=== PATIENT | female | born 1935 | race Caucasian/White ===

== ENCOUNTER → 2016-07-17 | Outpatient (CLI) | payer MEDICARE, BC ==
[~2016-07-17] MED LIST: AHCC PO; ALPHA LIPOIC AC50 MG PO; ASPIRIN EC81 MG PO; B COMPLEX1 EACH PO; BETAPACE (GENER80 MG PO; BIOTIN300 MCG PO; BORON PO; CALCIUM CITRAT1 EAC7 PO; CALCIUM500 MG PO; CHOLEST CARE500 MG PO; CHROMIUM PO; CINNAMON500 MG PO; CLA 1,000 MG1000 MG PO; CLA PO; COMBIGAN 0.25 ML/BOT OPHTH; COMBIGAN EYE DRO5 ML OPHTH; COMPAZINE 10MG10 MG PO; COPPER2 MG PO; COQ-10100 MG PO; CRANBERRY CONC1 EACH PO; DECADRON4 MG PO; DELSYM30 MG/5 ML PO; EMLA TOP; FERGON325 M1 PO; FISH OIL 1,0001 EACH PO; FOLIC ACID0.8 MG PO; GINKGO BILOBA120 MG PO; GLUCOPHAGE XR750 M1 PO; GRAPE SEED EXTR50 MG PO; GREEN TEA EXTR250 MG PO; LEVAQUIN750 MG PO; LUMIGAN 0.01%2.5 ML OPHTH; LUTEIN20 MG PO; LYCOPENE10 MG PO; MAG-OX-400(241400 MG PO; MUCINEX1200 MG PO; NIACIN50 MG PO; NORCO 5-325 MG1 TAB PO; NORVASC5 MG PO; PERCOCET 5-3251 EACH PO; PLANT STEROLS PO; POMEGRANATE250 MG PO; PRILOSEC20 MG PO; PRINIVIL (ZESTR20 MG PO; PROAIR RESPICL90 MCG INH; PROBIOTIC1 EAC1 PO; RESVERATROL250 MG PO; ROXICODONE 5MG (5 MG PO; SELENIUM200 MC1 PO; STIOLTO RESPIMAT4 GM INH; TONALIN CLA 11000 MG PO; TURMERIC500 MG PO; VITAMIN A10000 UNI1 PO; VITAMIN A8000 UNIT PO; VITAMIN B-12500 MCG PO; VITAMIN C1000 MG PO; VITAMIN D35000 UNI1 PO; VITAMIN E COMPLETE PO; VITAMIN K240 MCG PO; WOMEN'S BIOMUL1 EACH PO; XOPENEX1.25 MG/3 INH; ZINC50 M1 PO; [UNRECOGNIZED DRUG - OTHER] PO; [UNRECOGNIZED DRUG - OTHER] PO
== END | disposition disaster alternative care site (69) ==
LOC: GRAD 10:39
DX: C34.32 Malignant neoplasm of lower lobe, left bronchus or lung (principal); R91.1 Solitary pulmonary nodule
CPT/HCPCS: Q9967

== ENCOUNTER → 2016-10-29 | Outpatient (CLI) | payer MEDICARE, BC ==
[~2016-10-29] MED LIST changes: +LACTINEX (FLORA1 TAB PO; +LEVAQUIN 750 M750 MG PO; +LEVEMIR FL100 UNIT/1 SUB-Q; +NOVOLOG FL100 UNIT/1 SUB-Q
== END | disposition disaster alternative care site (69) ==
LOC: GRAD 10-28 14:00
DX: J32.9 Chronic sinusitis, unspecified (principal); C34.32 Malignant neoplasm of lower lobe, left bronchus or lung; R93.0 Abnormal findings on diagnostic imaging of skull and head, not elsewhere classified

== ENCOUNTER → 2016-11-10 | Day surgery (SDC) | payer MEDICARE, BC ==
[~2016-11-10] VITALS: Ht 160 cm; Wt 66.0 kg
--- NOTE | ~2016-11-10 | OR ---
PATIENT'S NAME: WILI HOWARD [facility] AGE: 81 Y [address] ROOM: [place] [address] LOCATION: [facility] ADMIT DATE: 11/10/2016 OR/Procedure Report DISCHARGE DATE: FAMILY PHYSICIAN: Nena Feldman MD ATTENDING PHYSICIAN: Lopez Delacruz V SURGEON: Lopez Delacruz MD MENTAL HEALTH CASE MANAGER: Kings Kelly MD-Student. 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 PROCEDURE PERFORMED: 1. Endoscopic sinus surgery with right sphenoidotomy. 2. Biopsy of sphenoid mass. 3. Stealth CT navigation. ANESTHESIA: General endotracheal anesthesia. ESTIMATED BLOOD LOSS: 25 mL. SPECIMEN REMOVED: Right sphenoid mass. FINDINGS: No discrete-appearing mass in the sphenoid sinus, however, the bone surrounding the sphenoid ostium was moth-eaten. This was biopsied and sent for frozen section. This did come back, likely malignancy, however, a definitive diagnosis was unable to be given on the frozen section. INDICATION: Wili Howard is a 81-year-old female with metastatic carcinoma. She had a CT scan showing erosion of the clivus, suspicious for metastatic malignancy. It was recommend that she undergo an endoscopic biopsy. PROCEDURE DETAILS: The patient was seen in the preoperative holding area. Informed written consent was obtained from the patient for functional endoscopic sinus surgery and biopsy of the sphenoid mass. After full knowledge of the risks, benefits, and alternatives, the patient wished to proceed. The patient was taken to the operating room and placed on the operating room table. General endotracheal anesthesia was induced without any difficulty. A time-out was performed identifying the patient as well as the procedure to be performed. We began by rotating the bed to 180 degrees. We set up our CT navigation and registered this and confirmed that it was accurate by measuring against bony landmarks on the face. The patient was PATIENT'S NAME: WILI HOWARD [facility] AGE: 81 Y [address] ROOM: [place] [address] LOCATION: [facility] ADMIT DATE: 11/10/2016 OR/Procedure Report DISCHARGE DATE: FAMILY PHYSICIAN: Nena Feldman MD ATTENDING PHYSICIAN: Lopez Delacruz V then prepped and draped in a normal sterile fashion. We used a 0 degree endoscope for this procedure. We entered the patient's right nasal passage. We lateralized the inferior turbinate and the middle turbinate. The patient had significant blood clots within nasal cavity, which were suctioned clear. We came up onto the face of the sphenoid sinus from a transnasal and medial approach, and we confirmed that we were on the sphenoid sinus using our CT navigation. We removed the inferior 1/3rd of the superior turbinate using a combination of forceps and microdebrider. We identified the sphenoid os and widened this using a combination of blunt dissection and forceps. We took multiple biopsies around the sphenoid ostium. We did enter through the inner sinus septum into the left sphenoid sinus as well. There was no discrete mass, however, the bone of the sinus was moth-eaten when we were taking biopsies of that. After we confirmed we had adequate tissue for diagnosis and for pathology, we then copiously irrigated the nose and sinuses with saline. We placed FloSeal hemostatic agent into the sphenoid sinus and then NasoPore absorbable nasal packing into the sphenoid sinus as well. This marked at the conclusion of procedure. All sponge and needle counts were correct x2. The patient was passed back to Anesthesia where she was extubated without difficulty and transported to PACU in stable condition. KINGS KELLY MD-STUDENT FOR MD YING HARTLEY/samanthal /[id number] d: 11/10/16 1851 t: 12/01/16 0957, OPERATIVE SUMMARY
[2016-11-10 08:13] LABS: INR - (THERAPEUTIC) 1.03 (0.92-1.07); PROTIME 10.8 SECONDS (9.8-11.4)
--- NOTE | 2016-11-10 15:12 | NUR ---
d: Patient desats 80-89 %. I: Cough and deep breaths. R: Sats increase to 90-91 % I: Called for Albuterol tx R: 1511. Tx given. sats 90%
--- NOTE | 2016-11-10 16:20 | NUR ---
I: Called Carin MONREAL regarding low sats. R: Will come and evaluate pateint. I: Ordered IS and c&DB Q 1 hour
== END ==
LOC: GPOC 11-07 17:00 → GRAD 06:51 → GSDC 07:00
PROVIDERS: Otolaryngology
PROC: 09CW4ZZ Extirpation of Matter from Right Sphenoid Sinus, Percutaneous Endoscopic Approach (ICD-10-PCS; principal; 2016-11-10)
PROC: 09CW4ZZ Extirpation of Matter from Right Sphenoid Sinus, Percutaneous Endoscopic Approach (ICD-10-PCS; 2016-11-10)
DX: C31.3 Malignant neoplasm of sphenoid sinus (principal); M87.9 Osteonecrosis, unspecified; I10 Essential (primary) hypertension; E11.9 Type 2 diabetes mellitus without complications; I48.91 Unspecified atrial fibrillation; J18.9 Pneumonia, unspecified organism; Z90.49 Acquired absence of other specified parts of digestive tract; Z98.41 Cataract extraction status, right eye; Z98.42 Cataract extraction status, left eye
CPT/HCPCS: A9270; J1642; J2001; J7030

== ENCOUNTER → 2016-11-18 | Outpatient (CLI) | payer MEDICARE, BC | END | disposition disaster alternative care site (69) | LOC: GKIC 09:52 | DX: C34.32 Malignant neoplasm of lower lobe, left bronchus or lung (principal); C79.51 Secondary malignant neoplasm of bone; R93.0 Abnormal findings on diagnostic imaging of skull and head, not elsewhere classified | CPT/HCPCS: A9552 ==

== ENCOUNTER → 2016-12-21 | Emergency (ER) | payer MEDICARE, BC ==
[~2016-12-21] MED LIST changes: -LACTINEX (FLORA1 TAB PO; -LEVAQUIN 750 M750 MG PO; -LEVEMIR FL100 UNIT/1 SUB-Q; -NOVOLOG FL100 UNIT/1 SUB-Q
== END | disposition disaster alternative care site (69) ==
LOC: GAMB 16:03
DX: R53.1 Weakness (principal); C71.9 Malignant neoplasm of brain, unspecified; E11.9 Type 2 diabetes mellitus without complications